=== PATIENT | female | born 1970 | race Caucasian/White ===

== ENCOUNTER 2017-08-17 17:48 | Emergency (ER) | payer SELFPAY ==
[~2017-08-17] VITALS: Ht 170.2 cm; Wt 74.0 kg
[2017-08-17 17:59] VITALS: BP 178/90; PULSE 107; RESP 18; TEMP 98.2; O2SAT 97
--- NOTE | 2017-08-17 19:36 | PD ---
HPI Chief Complaint: Cold / Flu Symptoms Time Seen by Provider: 19:32 Travel History International Travel<30 days: No Contact w/Intl Traveler<30days: No Traveled to known affect area: No History of Present Illness HPI 47-year-old female presents to the emergency department by private transportation for complaint of cold symptoms since last week with fever. Patient now has productive cough and sinus drainage with sinus congestion and pressure. Patient denies any nausea vomiting. Patient has had some intermittent diarrhea. No melena hematochezia. Denies dysuria frequency or urgency. Patient denies any chronic medical concerns. This back surgery admits to tobacco use and takes no medications on a regular basis. Over-the- counter medications have provided no relief of symptoms. PFSH Past Medical History Narrative Medical back surgery scoliosis; nursing notes reviewed ?: Not LMP: 08/14/2017 Social History Tobacco Use: No Allergies-Medications (Allergen,Severity, Reaction): Coded Allergies: Penicillins (Verified Allergy, Intermediate, RASH/HIVES, 08/17/17) Reported Meds & Prescriptions Reported Meds & Active Scripts Active Medrol Dosepak (Methylprednisolone) 4 Mg Dspk 4 Mg PO DIRECTED Per Pharmacist direction Ventolin Hfa 18 GM Inh (Albuterol Sulfate) 90 Mcg/Act Aer 2 Puff INH Q4-6H PRN Zithromax Z-Juan David (Azithromycin) 250 Mg Dspk 250 Mg PO DIRECTED 500 MG (2 tabs) day 1, then 1 tab days 2-5. Review of Systems Except as stated in HPI: all other systems reviewed are Neg General / Constitutional: Positive: Fever, No: Chills HENT: Positive: Congestion, No: Sore Throat, Neck Pain Cardiovascular: No: Chest Pain or Discomfort Respiratory: Positive: Cough, Wheezing Gastrointestinal: Positive: Diarrhea, No: Vomiting, Abdominal Pain Genitourinary: No: Dysuria Musculoskeletal: No: Myalgias, Arthralgias Skin: No Rash Neurologic: Positive: Dizziness, No: Weakness Psychiatric: No: Anxiety Hematologic/Lymphatic: No: Lymph Node Enlargement Physical Exam Narrative GENERAL: Well developed well-nourished male in no acute distress respiratory distress E SKIN: Warm and dry. HEAD: Normocephalic. EYES: No scleral icterus. No injection or drainage. NT: Mucous members moist airway is patent sinus tenderness to percussion over the maxilla sinuses bilaterally. Membranes no redness dullness or loss of landmarks. NECK: Supple, trachea midline. No JVD or lymphadenopathy. No meningismus no nuchal rigidity. CARDIOVASCULAR: Regular rate and rhythm without murmurs, gallops, or rubs. RESPIRATORY: Breath sounds equal bilaterally. No accessory muscle use. GASTROINTESTINAL: Abdomen soft, non-tender, nondistended. MUSCULOSKELETAL: No cyanosis, or edema. BACK: Nontender without obvious deformity. No CVA tenderness. Data Data Last Documented VS Vital Signs Date Time Temp Pulse Resp B/P (MAP) Pulse Ox O2 Delivery O2 Flow Rate FiO2 08/17/17 20:20 94 20 194/89 (124) 99 08/17/17 19:36 Room Air 08/17/17 17:59 98.2 Orders Orders Chest, Single Ap (08/17/17 ) Ed Discharge Order (08/17/17 20:14) [facility] Medical Decision Making Medical Screen Exam Complete: Yes Emergency Medical Condition: Yes Medical Record Reviewed: Yes Interpretation(s) Chest x-ray: nad Differential Diagnosis Pharyngitis sinusitis bronchitis pneumonia viral syndrome Narrative Course chest x-ray ordered Imaging reveals no infiltrate and associated with patient she'll be discharged with prescription for inhaler azithromycin and Medrol Dosepak Diagnosis Primary Impression: Bronchitis Referrals: Primary Care Physician call for appointment Patient Instructions: General Instructions Additional Instructions: Increase fluid hydration Use [id number] nasal decongestion spray as needed per package directions for 2-3 days avoid prolonged use avoid rebound congestion Use inhaler as prescribed as needed for wheezing or shortness of breath Complete course of antibiotic as prescribed Return to the emergency department for a concerns or change condition May take acetaminophen/Tylenol every 4 hours as needed for fever 100.4F or greater or ibuprofen/Advil/Motrin every 6-8 hours as needed for fever 100.4F or greater or for pain associated inflammation Med/Other Pt SpecificInfo: Prescription(s) given Scripts Methylprednisolone Dosepak (Medrol Dosepak) 4 Mg Dspk 4 MG PO DIRECTED, #1 DSPK 0 Refills Per Pharmacist direction Prov: Laxmi Norman MD 08/17/17 Albuterol 18 GM Inh (Ventolin Hfa 18 GM Inh) 90 Mcg/Act Aer 2 PUFF INH Q4-6H Y for SHORTNESS OF BREATH, #1 INHALER 0 Refills Prov: Laxmi Norman MD 08/17/17 Azithromycin (Zithromax Z-Juan David) 250 Mg Dspk 250 MG PO DIRECTED for Infection, #1 DSPK 0 Refills 500 MG (2 tabs) day 1, then 1 tab days 2-5. Prov: Laxmi Norman MD 08/17/17 Disposition: 01 DISCHARGE HOME Condition: Stable Laxmi Norman MD Aug 17, 2017 19:36
[2017-08-17] MEDS ORDERED: ZITHTAB PO (20:08)
[2017-08-17] MEDS ORDERED: VENTAER INH (20:08)
[2017-08-17] MEDS ORDERED: MEDR4PAK PO ×2 (20:10→20:13)
[2017-08-17 20:20] VITALS: BP 194/89
--- NOTE | 2017-08-17 20:53 | RADRPT ---
EXAM DATE/TIME: 08/17/2017 19:38 [place] COMPARISON: No previous studies available for comparison. INDICATIONS : Fever, cough. MEDICAL HISTORY : None. SURGICAL HISTORY : Kian, thoracic spine ENCOUNTER: Initial ACUITY: 3 days PAIN SCORE: 0/10 LOCATION: Bilateral chest FINDINGS: Scoliosis kian is noted within the thoracolumbar spine. No acute focal pulmonary infiltrate is noted. No pulmonary vascular congestion is noted. The heart is normal. Probable small hiatal hernia is noted . CONCLUSION: 1. No acute cardiopulmonary disease. 2. Probable small hiatal hernia. 3. Scoliosis of the thoracolumbar spine with kian in place. Ahmet Helms MD on August 17, 2017 at 20:49 Board Certified Radiologist. This report was verified electronically.
== END 2017-08-17 20:28 | disposition home or self-care (01) ==
LOC: PHED 17:48
DX: J40 Bronchitis, not specified as acute or chronic (principal); R19.7 Diarrhea, unspecified
CPT/HCPCS: 71010; 99284